=== PATIENT | female | born 1990 ===

== ENCOUNTER 2016-11-16 23:07 | Emergency (ER) | payer MEDICAID ==
[2016-11-16 23:08] VITALS: BMI 37.5
[2016-11-17 00:24] VITALS: O2SAT 99
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
[2016-11-17] MEDS ORDERED: Naproxen 550 mg Tab PO STA (01:22)
[2016-11-17 04:52] VITALS: BP 111/65; PULSE 72; RESP 18; TEMP -97.8
--- NOTE | 2016-11-17 07:34 | RAD ---
PROCEDURE: Cervical Spine Radiographs. HISTORY: Pain. COMPARISON: None. FINDINGS: BONES: Straightening of the normal cervical lordosis. No visualized fracture. Evaluation of the dens is markedly limited by the overlapping teeth. DISC SPACES: Normal. SOFT TISSUES: Normal. No prevertebral soft tissue swelling. OTHER FINDINGS: Bilateral C7 cervical ribs right greater than left IMPRESSION: Evaluation of the dens is limited. Recommend repeat exam to assess this area. This recommendation was conveyed marked for the physician's advertising sales assistant review. The other cervical vertebrae appear intact. Incidental note of cervical ribs. Cervical spine straightening noted.
--- NOTE | 2016-11-17 07:36 | RAD ---
PROCEDURE: Radiographs of the Right Shoulder HISTORY: pain COMPARISON: No prior. FINDINGS: BONES: Incidentally noted is a C7 cervical rib. No fracture. JOINTS: Normal. Glenohumeral and acromioclavicular joints preserved. No osteoarthritis. SOFT TISSUES: Normal. OTHER FINDINGS: None. IMPRESSION: No fracture or dislocation Incidentally noted is a C7 cervical rib.
== END 2016-11-17 04:53 | disposition home or self-care (01) ==
LOC: ED 23:07
DX: S16.1XXA Strain of muscle, fascia and tendon at neck level, initial encounter (principal); S43.401A Unspecified sprain of right shoulder joint, initial encounter; V49.9XXA Car occupant (driver) (passenger) injured in unspecified traffic accident, initial encounter

== ENCOUNTER 2017-02-10 12:52 | Emergency (ER) | payer MEDICAID ==
[2017-02-10 12:52] VITALS: BMI 37.5
[2017-02-10 13:09] VITALS: TEMP 98.4
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
[2017-02-10 15:10] VITALS: BP 126/85; PULSE 67; RESP 17; O2SAT 97
== END 2017-02-10 15:14 | disposition home or self-care (01) ==
LOC: ED 12:52
DX: T78.40XA Allergy, unspecified, initial encounter (principal)

== ENCOUNTER 2018-03-13 19:08 | Emergency (ER) | payer MEDICAID, OTHER ==
[2018-03-13 19:08] VITALS: BMI 37.5
[2018-03-13 19:53] VITALS: RESP 18; TEMP 98.6; O2SAT 98
[2018-03-13] MEDS ORDERED: Albuterol-Ipratrop 3 mg / 0.5 (3 ml) UD IH STA (20:12)
[2018-03-13] MEDS ORDERED: guaiFENesin 200 mg/10 ml Syrup UD PO ONE (20:12)
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
[2018-03-13 21:26] VITALS: BP 122/80; PULSE 87
== END 2018-03-13 21:28 | disposition home or self-care (01) ==
LOC: ED 19:08
DX: J20.9 Acute bronchitis, unspecified (principal)

== ENCOUNTER 2018-03-29 23:29 | Emergency (ER) | payer MEDICAID ==
[2018-03-29 23:36] VITALS: BMI 31.4
[2018-03-29 23:37] VITALS: BP 112/73; PULSE 102; RESP 18; TEMP 100.1; O2SAT 98
[2018-03-30] MEDS ORDERED: Sodium Chloride 0.9% 1,000 ML IV STA (00:10)
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
[2018-03-30 00:51] LABS: HEMOGLOBIN 11.2 g/dL (12.0-16.0); MEAN CELL VOLUME 79.3 fl (80.0-105.0); MEAN CORPUSCULAR HGB CONC 32.8 g/dl (31.0-37.0); MEAN PLATELET VOLUME 9.9 fl (7.0-11.0); RBC 4.3 10^6/uL (3.5-6.1); RED CELL DISTRIBUTION WIDTH 13.7 % (11.5-14.5); WHITE BLOOD COUNT 3.4 10^3/uL (4.5-11.0)
[2018-03-30 00:52] LABS: URINE BILIRUBIN NEGATIVE (NEGATIVE); URINE BLOOD LARGE (NEGATIVE); URINE GLUCOSE (UA) NEGATIVE (NEGATIVE); URINE LEUKOCYTE ESTERASE NEGATIVE Leu/uL (NEGATIVE); URINE PROTEIN 100 mg/dL (<30 mg/dL); URINE UROBILINOGEN 0.2 E.U./dL (<1 E.U./dL)
[2018-03-30 00:53] LABS: URINE APPEARANCE SL CLOUDY (CLEAR); URINE COLOR YELLOW (YELLOW)
[2018-03-30 01:05] LABS: ALB/GLOB RATIO 1.1 (1.1-1.8); ALBUMIN 3.7 g/dL (3.0-4.8); ALT/SGPT 22 U/L (7-56); AST/SGOT 26 U/L (14-36); BLOOD UREA NITROGEN 12 mg/dL (7-21); CALCIUM 8.5 mg/dL (8.4-10.5); GFR NON-AFRICAN AMERICAN > 60
[2018-03-30 01:08] LABS: URINE AMORPHOUS SEDIMENT FEW /hpf; URINE BACTERIA SMALL /hpf; URINE EPITHELIAL CELLS 0 - 2 /hpf (0-5); URINE WBC 0 - 2 /hpf (0-6)
[2018-03-30] MEDS ORDERED: Potassium Chloride 20 mEq ER Tab PO STA (01:18)
--- NOTE | 2018-03-30 09:16 | RAD ---
Date of service: 03/30/2018 HISTORY: cough COMPARISON: 03/12/2014 FINDINGS: LUNGS: No active pulmonary disease. PLEURA: No significant pleural effusion identified, no pneumothorax apparent. CARDIOVASCULAR: No aortic atherosclerotic calcification present. Normal cardiac size. No pulmonary vascular congestion. OSSEOUS STRUCTURES: No significant abnormalities. VISUALIZED UPPER ABDOMEN: Normal. OTHER FINDINGS: None. IMPRESSION: No active disease.
== END 2018-03-30 01:47 | disposition home or self-care (01) ==
LOC: ED 23:29
DX: J10.1 Influenza due to other identified influenza virus with other respiratory manifestations (principal); J40 Bronchitis, not specified as acute or chronic
CPT/HCPCS: 71045; 80053; 81001; 85027; 87804; 96360; 99282; J7030